=== PATIENT | female | born 1995 | race Two or more races ===

== ENCOUNTER 2025-03-06 20:53 | Emergency (ER) | payer OTHER, BC, SELFPAY ==
[2025-03-06 20:54] VITALS: BMI 26.9
[2025-03-06 21:40] VITALS: BP 115/75; PULSE 77; RESP 16; TEMP 36.7; O2SAT 99
--- NOTE | 2025-03-06 22:30 | PD.EDRME ---
Rapid Medical Screening Exam RME Arrival date/time: 03/06/25 20:53 Chief Complaint: Abdominal Pain Time Seen by Provider: 03/06/25 21:56 Vital signs: Vital Signs Temperature 98.0 F 03/06/25 21:40 Pulse Rate 77 03/06/25 21:40 Respiratory Rate 16 03/06/25 21:40 Blood Pressure 115/75 03/06/25 21:40 Pulse Oximetry (%) 99 03/06/25 21:40 Oxygen Delivery Method Room Air 03/06/25 21:40 RME Narrative: 29-year-old female presents with right middle/lower quadrant abdominal tenderness, onset today. The pain is worse with walking. She denies any fever or chills, nausea or vomiting, diarrhea but she has had some constipation. She does have a decreased appetite. Last bowel movement was 2 days ago. Labs, urinalysis, CT abdomen and pelvis with contrast is ordered and pending. I have greeted and performed a focused initial assessment of this patient. A comprehensive ED assessment and evaluation of the patient, analysis of all test results, and completion of the medical decision making process will be conducted by additional ED providers.
--- NOTE | 2025-03-06 22:54 | XR_ITS ---
Examination: CT abdomen with intravenous contrast CT pelvis with intravenous contrast 2-D coronal reconstructions 2-D sagittal reconstructions Date and time of exam:March 07, 2025 0058 hrs. Indications: Right lower abdominal pain beginning 2 days ago. CTDI: vol (mGy) 7.83 DLP: (mGycm) 487 Technique: Multiple axial sections of the abdomen and pelvis have been obtained. 64 slice high-resolution scanner used. 3 mm axial sections have been obtained, post intravenous injection 60 cc [id number] 2-D sagittal, coronal reconstructions obtained. Low dose protocols were performed. One or more of the following dose reduction techniques were used; automated exposure control, adjustment of the mA and/or KV according to patient size, use of iterative reconstruction technique. Findings: No focal liver or splenic lesion No gallstones No pancreatic mass No renal or ureteral calculi Aorta normal size Normal appendix No bowel obstruction 14 mm involuting right ovarian follicular cyst Osseous structures are intact Impression: Normal appendix 14 mm right ovarian follicular cysts
[2025-03-06 23:05] LABS: Basophils # (Auto) 0.1 Thou/mm3 (0.0-0.2); Basophils % (Auto) 1 % (0-2.5); Eosinophils # (Auto) 0.2 Thou/mm3 (0.0-0.5); Eosinophils % (Auto) 3 % (0-10); Hematocrit 36.9 % (36.0-46.0); Hemoglobin 12.9 g/dL (12.0-16.0); Immature Granulocytes % (Auto) 0 % (0-0); Immature Granulocytes Auto 0.02 Thou/mm3 (0.00-0.00); Lymphocytes # (Auto) 2.4 Thou/mm3 (1.0-4.8); Lymphocytes % (Auto) 33 % (10-50); Mean Corpuscular Hemoglobin 32.6 pg (25.0-35.0); Mean Corpuscular Volume 93 fL (80-100); Monocytes # (Auto) 0.5 Thou/mm3 (0.0-0.8); Monocytes % (Auto) 6 % (0-12); Neutrophils # (Auto) 4.1 Thou/mm3 (1.8-7.7); Neutrophils % (Auto) 57 % (37-80); Nucleated Red Blood Cell % 0 /100 WBC (0); Platelet Count 285 Thou/mm3 (140-440); RDW Standard Deviation 43.8 fL (36.4-46.3); Red Blood Count 3.96 Miln/mm3 (4.00-5.20); White Blood Count 7.2 Thou/mm3 (3.6-11.0)
[2025-03-06 23:12] LABS: Collection Type, Urine Clean Catch
[2025-03-06 23:19] LABS: Bilirubin,Urine Negative (Negative); Blood,Urine Trace (Negative); Clarity,Urine Clear (Clear/Hazy); Color,Urine Lt-Yellow (Lt Yel-Yel); Glucose, Urine Negative (Negative); Ketones,Urine Negative (Negative); Leukocyte Esterase,Urine Negative (Negative); Nitrite,Urine Negative (Negative); Protein,Urine Negative (Neg - Trace); RBC,Urine 2 /hpf (0-3); Specific Gravity,Urine 1.013 (1.001-1.035); Squamous Epithelial Cell,Urine 2 /hpf (0-5); Urobilinogen,Urine Negative mg/dL (0.0-1.0); WBC,Urine < 1 /hpf (0-5)
[2025-03-06 23:20] LABS: HCG Qualitative,Urine Negative
[2025-03-06 23:25] LABS: Alanine Aminotransferase 11 U/L (10-49); Albumin, Serum 4.3 gm/dL (3.5-5.0); Albumin/Globulin Ratio 1.7 (1.2-2.2); Alkaline Phosphatase 65 U/L (46-116); Amylase 40 U/L (30-118); Anion Gap 9 (7-16); Aspartate Amino Transferase 16 U/L (0-34); BUN/Creatinine Ratio 10 Ratio (12-20); Bilirubin,Total 0.4 mg/dL (0.3-1.2); Blood Urea Nitrogen 6 mg/dL (9-23); Calcium 9.3 mg/dL (8.3-10.6); Calcium (Corrected) 9.3 mg/dL (8.5-10.1); Carbon Dioxide 23.6 mMol/L (20.0-31.0); Chloride 108 mMol/L (98-107); Creatinine (Component) 0.6 mg/dL (0.6-1.3); Estimated Creatinine Clearance 121.7 mL/min (>60); Globulin 2.5 gm/dL (2.3-3.5); Glucose 100 mg/dL (74-106); Lipase 30 U/L (12-53); Osmolality,Calculated 278 (275-295); Potassium 3.8 mMol/L (3.4-5.1); Sodium 141 mMol/L (136-145); Total Protein 6.8 gm/dL (5.7-8.2); eGFR > 60 See Note
--- NOTE | 2025-03-07 00:33 | PD.EDMEDCL ---
ED Medical Clearance RME/HPI General Chief complaint: Abdominal Pain Stated complaint: RIGHT SIDE ABD PAIN Time Seen by Provider: 03/06/25 21:56 Arrival date/time: 03/06/25 20:53 RME / HPI RME / HPI Narrative: 29-year-old female presents with right middle/lower quadrant abdominal tenderness, onset today. The pain is worse with walking. She denies any fever or chills, nausea or vomiting, diarrhea but she has had some constipation. She does have a decreased appetite. Last bowel movement was 2 days ago. Labs, urinalysis, CT abdomen and pelvis with contrast is ordered and pending. I have greeted and performed a focused initial assessment of this patient. A comprehensive ED assessment and evaluation of the patient, analysis of all test results, and completion of the medical decision making process will be conducted by additional ED providers. Related Information Home Medications ?Medication ?Instructions ?Recorded ?Confirmed prenat.vits,uday,ntx-ltpt-uifvd 1 tab PO QDAY 05/21/22 07/20/22 Allergies Allergy/AdvReac Type Severity Reaction Status Date / Time No Known Allergies Allergy Verified 03/06/25 20:54 Course Orders Category Date Time Status CT Screening NOW Care 03/06/25 22:[address] Screening X1 Care 03/06/25 22:54 Active IV [Insert IV] NOW Care 03/06/25 22:33 Active NPO STAT Care 03/06/25 22:[address] abdomen pelvis w con Stat Exams 03/06/25 22:54 Ordered Amylase Stat Lab 03/06/25 22:50 Completed Blood Culture (Lab) Stat Lab 03/06/25 22:48 Received CBC Stat Lab 03/06/25 22:50 Completed Comprehensive Metabolic Panel Stat Lab 03/06/25 22:50 Completed HCG Qualitative,Urine Stat Lab 03/06/25 23:05 Completed Lactate (Lactic Acid) Stat Lab 03/06/25 22:50 Completed Lipase Stat Lab 03/06/25 22:50 Completed Urinalysis Stat Lab 03/06/25 23:05 Completed Vital Signs Vital signs: Vital Signs Temperature 98.0 F 03/06/25 21:40 Pulse Rate 77 03/06/25 21:40 Respiratory Rate 16 03/06/25 21:40 Blood Pressure 115/75 03/06/25 21:40 Pulse Oximetry (%) 99 03/06/25 21:40 Oxygen Delivery Method Room Air 03/06/25 21:40 Discharge Plan Prescriptions/Referrals Prescriptions/Med Rec: No Action Vitamin Tablet 1 tab PO QDAY Referrals: No Primary/Family,Physician [Primary Care Provider] - In 1 week Patient/Caregiver Discharge Instructions Print Language: Citizen Of [place]
--- NOTE | 2025-03-07 01:56 | PRELIM_ITS ---
CT scan of the abdomen and pelvis with intravenous contrast (axial sections with sagittal and coronal reformats) March 07, 2025 0058 hours Clinical History: Right lower quadrant abdominal pain, concern for appendectomy. Comparison: None. Findings: The liver, gallbladder, pancreas, spleen, kidneys and adrenals are unremarkable. No evidence of bowel obstruction. The appendix is within normal limits (axial images 148-159/255). There is no mesenteric or retroperitoneal adenopathy. There is wall thickening of the incompletely distended urinary bladder. The uterus is unremarkable. There is a involuting follicle in the right ovary with a small amount of free fluid in the pelvis. There is no free air. The osseous structures are unremarkable. The lung bases are clear. Please note that evaluation of bowel loops is limited due to absence of oral contrast. Impression: 1. No evidence of acute appendicitis. 2. Involuting follicle in the right ovary with a small amount of free fluid in the pelvis. 3. Wall thickening of the incompletely distended urinary bladder, which may represent cystitis. Suggest clinical correlation and follow up accordingly. Report Electronically Signed By: Sergey Hong 03/07/2025 1:55:45 AM [EST]
[2025-03-07] MEDS: IBUPROFEN TAB 600 MG TABLET PO (02:54)
[2025-03-07 03:32] VITALS: RESP 16
--- NOTE | 2025-05-17 01:38 | PD.EDADULT ---
ED General RME/HPI General Chief complaint: Abdominal Pain Stated complaint: RIGHT SIDE ABD PAIN Time Seen by Provider: 03/06/25 21:56 Arrival date/time: 03/06/25 20:53 RME / HPI RME / HPI narrative: 29-year-old female presents with right middle/lower quadrant abdominal tenderness, onset today. The pain is worse with walking. She denies any fever or chills, nausea or vomiting, diarrhea but she has had some constipation. She does have a decreased appetite. Last bowel movement was 2 days ago. Related Data Home Medications ?Medication ?Instructions ?Recorded ?Confirmed prenat.vits,uday,hri-rbyn-vyapa 1 tab PO QDAY 05/21/22 07/20/22 Previous Rx's ?Medication ?Instructions ?Recorded ibuprofen 600 mg tablet 600 mg PO Q8H PRN pain #30 tabs 03/07/25 Allergies Allergy/AdvReac Type Severity Reaction Status Date / Time No Known Allergies Allergy Verified 03/06/25 20:54 Review of Systems Review of Systems Systems Reviewed: All systems reviewed, normal except as documented Past Medical History Past Medical History NEUROLOGIC: Negative Neurological Disorders CARDIAC: Positive Varicose Veins; Negative Cardiac Disorders or Congestive Heart Failure RESPIRATORY: Negative Chronic Obstructive Pulmonary Disease (COPD) or Asthma GASTROINTESTINAL: Negative Gastrointestinal Disorders or Hepatitis GENITOURINARY: Negative Genitourinary Disorders or Renal Disease REPRODUCTIVE: Positive Previous Pregnancies ( X 4. ); Negative Endometriosis, Genital Herpes, Gonorrhea, Pelvic Inflammatory Disease, Syphilis or Uterine Prolapse MUSCULOSKELETAL: Negative Musculoskeletal Disorders ENDOCRINE: Negative Endocrine Disorders, Diabetes Mellitus Type 1 or Diabetes Mellitus Type 2 HEMATOLOGIC: Negative Blood Disorders or Sickle Cell Disease PSYCHO/SOCIAL: Positive Anxiety OTHER HISTORY: Positive Hospitalization (CHILDBIRTH) and Chicken Pox (IN HIGHSCHOOL); Negative Autoimmune Disease, Down Syndrome, Developmental Delay, Shingles, Falls, Blood Transfusions, Blood Transfusion Reaction, Anesthesia Reactions, Organ Transplant, Chemotherapy, Radiation Therapy, Hyperbaric Therapy, MRSA, VRSA, Vancomycin-Resistant Enterococci, Human Immunodeficiency Virus (HIV), Measles, Mumps, Rubella ([place] Measles), Pertussis, Clostridium Difficile or Cancer Family History FAMILY HISTORY: Positive Family Psychiatric Problems (FAMILY ANXIETY) and Family Cancer (DAUGHTER FROM BRAIN TUMOR, AUNT-BREAST); Negative Family Respiratory Disorders, Family Cardiac Disorders, Family Gastrointestinal Problems, Family Surgery or Family Anesthesia Reaction Surgical History SURGICAL: Negative Section or Organ Transplant Social History SMOKING STATUS: Never smoker ED Exam Narrative Physical exam: Alert and oriented 29-year-old female, no acute distress. Vital signs blood pressure 115/75, pulse 77, respirations 16 and nonlabored, temperature 98.0, O2 sat 99% on room air. Lungs are clear, no respiratory distress noted, regular rate and rhythm. Abdomen is soft with right lower quadrant abdominal tenderness noted on palpation. No tenderness to percussion. No rebound or guarding. No CVA tenderness noted. Course Orders Category Date Time Status CT Screening NOW Care 03/06/25 22:[address] Screening X1 Care 03/06/25 22:54 Completed IV [Insert IV] NOW Care 03/06/25 22:33 Completed NPO STAT Care 03/06/25 22:[address] abdomen pelvis w con Stat Exams 03/06/25 22:54 Completed Amylase Stat Lab 03/06/25 22:50 Completed Blood Culture (Lab) Stat Lab 03/06/25 22:48 Completed CBC Stat Lab 03/06/25 22:50 Completed Comprehensive Metabolic Panel Stat Lab 03/06/25 22:50 Completed HCG Qualitative,Urine Stat Lab 03/06/25 23:05 Completed Lactate (Lactic Acid) Stat Lab 03/06/25 22:50 Completed Lipase Stat Lab 03/06/25 22:50 Completed Urinalysis Stat Lab 03/06/25 23:05 Completed Ibuprofen Tab [Motrin Tab] Med 03/07/25 02:20 Discontinued 600 mg PO X1 ONE Vital Signs Vital signs: Vital Signs Temperature 98.0 F 03/06/25 21:40 Pulse Rate 77 03/06/25 21:40 Respiratory Rate 16 03/06/25 21:40 Blood Pressure 115/75 03/06/25 21:40 Pulse Oximetry (%) 99 03/06/25 21:40 Oxygen Delivery Method Room Air 03/06/25 21:40 Discharge Plan Plan Patient Disposition: HOME (Self Care) Prescriptions/Referrals Prescriptions/Med Rec: New ibuprofen 600 mg tablet 600 mg PO Q8H PRN (Reason: pain) Qty: 30 0RF Rx Instructions: Take with food to avoid stomach upset. No Action Vitamin Tablet 1 tab PO QDAY Referrals: No Primary/Family,Physician [Primary Care Provider] - In 1 week Problem List Clinical Impression: Ovarian cyst Patient/Caregiver Discharge Instructions Education Materials: ED Ovarian Cyst Additional Instructions: Follow-up with your primary care physician in 24 to 48 hours. Return to the ED for any new or worsening symptoms. Print Language: [place] Stand Alone Forms: [facility] Award Info., Patient Portal Info Letter PA/CHIEF AIRLINE RADIO OPERATOR Supervising Physician PA/CHIEF AIRLINE RADIO OPERATOR Supervising Physician: Dr. Carl MONTAGUE Medication Administration(s) Medication Administration History Discontinued Medications Ibuprofen (Ibuprofen Tab 600 Mg Tablet) 600 mg PO X1 ONE Stop: 03/07/25 02:21 Last Admin: 03/07/25 02:54 Dose: 600 mg Documented By: CORBIN
== END 2025-03-07 03:32 | disposition home or self-care (01) ==
PROVIDERS: Physician Assistant; Emergency Provider Emergency Medicine
DX: N83.01 Follicular cyst of right ovary (principal)
CPT/HCPCS: 36415; 74177; 80053; 81001; 81025; 82150; 83605; 83690; 85025; 87040; 99285; A4649; Q9967; A9270